=== PATIENT | male | born 1970 | race Caucasian/White ===

== ENCOUNTER 2021-04-02 10:36 | Emergency (ER) | payer BC ==
[2021-04-02] MEDS ORDERED: Ketorolac 60 MG/2 ML SDV IM ONE (11:09)
[2021-04-02] MEDS ORDERED: cefTRIAXone 1 GM Vial IM ONE (11:09)
--- NOTE | 2021-04-02 11:11 | EDM.PDOC ---
ED HPI GENERAL MEDICAL PROBLEM - General Chief Complaint: General Stated Complaint: tooth pain Time Seen by Provider: 04/02/21 10:45 - History of Present Illness Onset Date: 03/31/21 Duration: Getting Worse Location: Reports: Face (left upper molar) Quality: Reports: Ache Severity: Moderate Improves with: Reports: Medication Worsens with: Reports: Movement Associated Symptoms: Reports: Other (facial swelling left upper molar area) Treatments [employer]IST: Reports: Acetaminophen Left Face/Facial Pain Score (Numeric/FACES): 8 - Related Data Allergies Allergy/AdvReac Type Severity Reaction Status Date / Time No Known Allergies Allergy Verified 04/02/21 10:38 Past Medical History Cardiovascular History: Reports: Hypertension - Past Surgical History GI Surgical History: Reports: Appendectomy Social & Family History - Tobacco Use Tobacco Use Status *Q: Current Every Day Tobacco User Years of Tobacco use: 35 Packs/Tins Daily: 1.5 - Caffeine Use Caffeine Use: Reports: Soda ED ROS GENERAL - Review of Systems Review Of Systems: Comprehensive ROS is negative, except as noted in HPI. ED EXAM, GENERAL - Physical Exam Exam: See Below Exam Limited By: No Limitations General Appearance: Alert, No Apparent Distress Eye Exam: Bilateral Eye: Normal Inspection Ears: Normal External Exam Nose: Normal Inspection, Normal Mucosa, No Blood Throat/Mouth: Normal Lips, Inflammation, Other (dental caries, swelling, redness to left upper molar) Head: Facial Swelling, Facial Tenderness Neck: Normal Inspection, Supple, Non-Tender, Full Range of Motion Respiratory/Chest: No Respiratory Distress, Lungs Clear, Normal Breath Sounds Cardiovascular: Normal Peripheral Pulses, Regular Rate, Rhythm, No Edema GI/Abdominal: Normal Bowel Sounds, Soft, Non-Tender Extremities: Normal Range of Motion, Non-Tender, Normal Capillary Refill Neurological: Alert, Oriented, Normal Cognition, Normal Gait Psychiatric: Normal Affect, Normal Mood Skin Exam: Warm, Dry, Intact, Normal Color, No Rash Lymphatic: No Adenopathy Course - Vital Signs Last Recorded V/S: Last Vital Signs Temp 98 F 04/02/21 10:39 Pulse 80 04/02/21 10:39 Resp 18 04/02/21 10:39 BP 155/88 H 04/02/21 10:39 Pulse Ox 97 04/02/21 10:39 - Orders/Labs/Meds Meds: Medications Discontinued Medications Generic Name Dose Route Start Last Admin Trade Name Freq PRN Reason Stop Dose Admin Ceftriaxone Sodium 1 gm 04/02/21 11:09 04/02/21 11:16 Ceftriaxone 1 Gm Vial IM 04/02/21 11:10 1 gm ONETIME ONE Administration Ketorolac Tromethamine 60 mg 04/02/21 11:09 04/02/21 11:15 Ketorolac 60 Mg/2 Ml Sdv IM 04/02/21 11:10 60 mg ONETIME ONE Administration - Re-Assessments/Exams Free Text/Narrative Re-Assessment/Exam: 04/02/21 13:42 responded favorably to ketorolac injection, also gave ceftriaxone injection without incident Departure - Departure Time of Disposition: 11:15 Disposition: Home, Self-Care 01 Condition: Good Clinical Impression: Dental abscess - Discharge Information Instructions: Dental Abscess, Dental Abscess, [id number] Referrals: Aye Mccormick PA-C [Primary Care Provider] - Forms: ED Department Discharge Additional Instructions: Get antibiotics filled and start tomorrow. Tylenol as needed for pain, may take ibuprofen but wait 8 hrs after ketorolac injection in ER. May use over the counter gels like Ora-gel or similar. Salt water rinses. Follow up with dentist SHEA. Sepsis Event Note (ED) - Evaluation Sepsis Screening Result: No Definite Risk - Focused Exam Vital Signs: Vital Signs Temp Pulse Resp BP Pulse Ox 04/02/21 10:39 98 F 80 18 155/88 H 97 - Problem List & Annotations (1) Dental abscess SNOMED Code(s): 003028267 Code(s): K04.7 - PERIAPICAL ABSCESS WITHOUT SINUS Status: Acute Current Visit: Yes - Problem List Review Problem List Initiated/Reviewed/Updated: Yes
== END 2021-04-02 11:46 | disposition home or self-care (01) ==
LOC: CC.ED 10:36
DX: K04.7 Periapical abscess without sinus (principal); K02.9 Dental caries, unspecified; Z72.0 Tobacco use
CPT/HCPCS: 96372; 99282; J0696; J1885

== ENCOUNTER → 2022-09-15 | Day surgery (SDC) | payer BC ==
[~2022-09-15] MED LIST: Ketamine 200 MG/20 ML MDV ONE; Midazolam 1 MG/ML 2 ML SDV ONE; Propofol 200 MG/20 ML SDV ONE; fentaNYL 50 MCG/ML SDV ONE
[2022-09-15] MEDS: Lactated Ringers 1,000 ML IV SCH (07:04)
== END ==
LOC: CC.SDS 06:49
PROVIDERS: ATTEND Family Medicine
DX: D12.0 Benign neoplasm of cecum (principal); D12.3 Benign neoplasm of transverse colon; K63.5 Polyp of colon; K62.1 Rectal polyp; F41.9 Anxiety disorder, unspecified; I10 Essential (primary) hypertension; M19.90 Unspecified osteoarthritis, unspecified site; F32.A Depression, unspecified; J44.9 Chronic obstructive pulmonary disease, unspecified; Z79.899 Other long term (current) drug therapy
CPT/HCPCS: 00811; J2250; J2704; J3010; J3490; J7120

== ENCOUNTER 2023-03-16 13:54 | Emergency (ER) | payer BC ==
[2023-03-16] MEDS ORDERED: Lidocaine 1% 5 ML VIAL INJECT ONE (14:00)
[2023-03-16] MEDS ORDERED: Diphtheria,Pertussis(Acell),Tetanus Vaccine 0.5 ML Syringe IM ONE (14:00)
[2023-03-16] MEDS ORDERED: Bacitracin/Neomycin/Polymyxin B Oint 0.9 GM U/D Packet TOP ONE (14:01)
== END 2023-03-16 15:12 | disposition home or self-care (01) ==
LOC: CC.ED 13:54
DX: S61.210A Laceration without foreign body of right index finger without damage to nail, initial encounter (principal); S61.212A Laceration without foreign body of right middle finger without damage to nail, initial encounter; I10 Essential (primary) hypertension; Z90.49 Acquired absence of other specified parts of digestive tract; W31.2XXA Contact with powered woodworking and forming machines, initial encounter; Y99.0 Civilian activity done for income or pay; Z79.899 Other long term (current) drug therapy
CPT/HCPCS: 12002; 73130-RT; 90471; 90715; 99283; 99283-25; A9270-GY; J3490

== ENCOUNTER 2023-03-30 15:33 | Emergency (ER) | payer BC ==
[2023-03-30 16:08] LABS: BASOPHILS ABSOLUTE AUTO 0.05 10^3/uL (0.00-0.50); BASOPHILS PERCENT AUTO 0.3 % (0-1); EOSINOPHILS ABSOLUTE AUTO 0.02 10^3/uL (0.00-1.50); EOSINOPHILS PERCENT AUTO 0.1 % (0-6); HEMATOCRIT 47.8 % (42.0-52.0); HEMOGLOBIN 16.6 g/dL (14.0-18.0); IMMATURE GRAN ABSOLUTE AUTO 0.05 10^3/uL (0.00-0.49); IMMATURE GRAN PERCENT AUTO 0.3 % (0.0-4.9); LYMPHOCYTES ABSOLUTE AUTO 3.53 10^3/uL (0.60-5.00); LYMPHOCYTES PERCENT AUTO 22.8 % (24-44); MEAN CORPUSCULAR HEMOGLOBIN 30.4 pg (27.0-32.0); MEAN CORPUSCULAR HGB CONC 34.7 g/dL (32.0-36.0); MEAN CORPUSCULAR VOLUME 87.5 fL (83.0-97.0); MONOCYTES ABSOLUTE AUTO 1.06 10^3/uL (0.00-1.50); MONOCYTES PERCENT AUTO 6.8 % (0-10); NEUTROPHILS ABSOLUTE AUTO 10.77 x10^3/uL (1.80-8.00); NEUTROPHILS PERCENT AUTO 69.7 % (41-71); PLATELET COUNT,PLT 312 10^3/uL (150-400); RED BLOOD CELL COUNT 5.46 x10^6/uL (4.50-6.00); WHITE BLOOD CELL COUNT,WBC 15.5 10^3/uL (4.0-11.0)
[2023-03-30 16:23] LABS: ALANINE AMINOTRANSFERASE,ALT 17 U/L (12-78); ALKALINE PHOSPHATASE 133 U/L (46-116); ASPARTATE AMNIOTRANSFERASE,AST 11 U/L (15-37); BILIRUBIN TOTAL 0.6 mg/dL (0.0-1.0); BLOOD UREA NITROGEN,BUN 11 mg/dL (7-18); CALCIUM 9.6 mg/dL (8.4-10.1); CARBON DIOXIDE,CO2 27 mmol/L (21-32); CHLORIDE,CL 97 mEq/L (98-106); CREATININE 0.9 mg/dL (0.7-1.3); EST CRCL DRUG DOSING (CG) 99.14 mL/min; ESTIMATED GFR 103 mL/min (>=60); ETHANOL BLOOD MEDICAL < 3 mg/dL (0-3); GLUCOSE RANDOM 105 mg/dL (75-99); POTASSIUM,K 3.4 mEq/L (3.5-5.0); SODIUM,NA 135 mEq/L (136-145)
== END 2023-03-30 17:40 | disposition home or self-care (01) ==
LOC: CC.ED 15:33
DX: F31.9 Bipolar disorder, unspecified (principal); I10 Essential (primary) hypertension; F17.210 Nicotine dependence, cigarettes, uncomplicated; Z90.49 Acquired absence of other specified parts of digestive tract; Z79.899 Other long term (current) drug therapy
CPT/HCPCS: 36415; 80053; 80175; 80307; 85025; 99284

== ENCOUNTER 2023-04-02 20:12 | Emergency (ER) | payer BC ==
[2023-04-02 20:46] LABS: APPEARANCE,URINE CLEAR (CLEAR); COLOR,URINE YELLOW (YELLOW); GLUCOSE,URINE NEGATIVE (NEGATIVE); KETONES,URINE TRACE mg/dL (NEGATIVE); LEUKOCYTE ESTERASE,URINE NEGATIVE (NEGATIVE); NITRITE,URINE NEGATIVE (NEGATIVE); OCCULT BLOOD,URINE NEGATIVE (NEGATIVE); PROTEIN,URINE 30 mg/dL (NEGATIVE)
[2023-04-02 20:53] LABS: BASOPHILS ABSOLUTE AUTO 0.03 10^3/uL (0.00-0.50); BASOPHILS PERCENT AUTO 0.2 % (0-1); HEMATOCRIT 45.4 % (42.0-52.0); HEMOGLOBIN 15.8 g/dL (14.0-18.0); IMMATURE GRAN ABSOLUTE AUTO 0.06 10^3/uL (0.00-0.49); IMMATURE GRAN PERCENT AUTO 0.4 % (0.0-4.9); LYMPHOCYTES ABSOLUTE AUTO 2.39 10^3/uL (0.60-5.00); LYMPHOCYTES PERCENT AUTO 15.2 % (24-44); MEAN CORPUSCULAR HEMOGLOBIN 30.9 pg (27.0-32.0); MEAN CORPUSCULAR HGB CONC 34.8 g/dL (32.0-36.0); MEAN CORPUSCULAR VOLUME 88.7 fL (83.0-97.0); MONOCYTES ABSOLUTE AUTO 1.03 10^3/uL (0.00-1.50); MONOCYTES PERCENT AUTO 6.5 % (0-10); NEUTROPHILS ABSOLUTE AUTO 12.26 x10^3/uL (1.80-8.00); NEUTROPHILS PERCENT AUTO 77.7 % (41-71); PLATELET COUNT,PLT 333 10^3/uL (150-400); RED BLOOD CELL COUNT 5.12 x10^6/uL (4.50-6.00); WHITE BLOOD CELL COUNT,WBC 15.8 10^3/uL (4.0-11.0)
[2023-04-02 20:57] LABS: BILIRUBIN,URINE SMALL (NEGATIVE)
[2023-04-02 20:59] LABS: RBC,URINE NOT SEEN /HPF (0-5); WBC,URINE NOT SEEN /HPF (0-5)
[2023-04-02 20:59] LABS: METHAMPHETAMINES,URINE NEGATIVE (NEGATIVE)
[2023-04-02 21:00] LABS: AMPHETAMINES,URINE NEGATIVE (NEGATIVE); BARBITURATES,URINE NEGATIVE (NEGATIVE); BENZODIAZEPINE,URINE POSITIVE (NEGATIVE); MDMA (ECSTASY), URINE NEGATIVE (NEGATIVE); METHADONE,URINE NEGATIVE (NEGATIVE); OPIATES,URINE NEGATIVE (NEGATIVE); OXYCODONE,URINE NEGATIVE (NEGATIVE); PHENCYCLIDINE,URINE NEGATIVE (NEGATIVE); TCA,URINE NEGATIVE (NEGATIVE)
[2023-04-02 21:07] LABS: ALANINE AMINOTRANSFERASE,ALT 18 U/L (12-78); ALBUMIN 3.9 g/dL (3.4-5.0); ALKALINE PHOSPHATASE 120 U/L (46-116); ASPARTATE AMNIOTRANSFERASE,AST 15 U/L (15-37); BILIRUBIN TOTAL 0.6 mg/dL (0.0-1.0); BLOOD UREA NITROGEN,BUN 14 mg/dL (7-18); CALCIUM 9.5 mg/dL (8.4-10.1); CARBON DIOXIDE,CO2 29 mmol/L (21-32); CHLORIDE,CL 100 mEq/L (98-106); EST CRCL DRUG DOSING (CG) 89.22 mL/min; GLUCOSE RANDOM 96 mg/dL (75-99); MAGNESIUM 1.7 mg/dL (1.8-2.4); POTASSIUM,K 3.5 mEq/L (3.5-5.0); PROTEIN TOTAL,TP 7.7 g/dL (6.4-8.2); SODIUM,NA 139 mEq/L (136-145); TSH ULTRASENSITIVE 0.99 uIU/mL (0.36-5.60)
[2023-04-02 21:29] LABS: ESTIMATED GFR 91 mL/min (>=60); ETHANOL BLOOD MEDICAL < 3 mg/dL (0-3)
== END 2023-04-03 00:23 ==
LOC: CC.ED 20:12
DX: F31.12 Bipolar disorder, current episode manic without psychotic features, moderate (principal); I10 Essential (primary) hypertension; Z79.899 Other long term (current) drug therapy; Z90.49 Acquired absence of other specified parts of digestive tract; Z20.822 Contact with and (suspected) exposure to COVID-19
CPT/HCPCS: 36415; 71046; 80053; 80305-QW; 80307; 81001; 83735; 84443; 85025; 87804; 99284; 99285; U0002